=== PATIENT | male | born 2000 | race Caucasian/White ===

== ENCOUNTER 2022-11-01 10:31 | Emergency (ER) | payer OTHER, SELFPAY ==
[2022-11-01] MEDS ORDERED: Ibuprofen 800 MG TAB ONE (11:27)
[2022-11-01] MEDS ORDERED: Bacitracin 1 PK ONE (11:32)
== END 2022-11-01 11:37 | disposition home or self-care (01) ==
LOC: MADERS 10:31
DX: S90.31XA Contusion of right foot, initial encounter (principal); W20.8XXA Other cause of strike by thrown, projected or falling object, initial encounter